=== PATIENT | male | born 1965 | race Caucasian/White ===

== ENCOUNTER → 2016-07-22 | Outpatient (CLI) | payer BC ==
--- NOTE | 2016-07-22 18:52 | MR ---
MRI of the brain with and without contrast HISTORY: Dizziness. TECHNIQUE: T1-weighted sagittal, T2, FLAIR, and diffusion axial, postcontrast T1 axial and coronal vi ews of the brain are submitted. CONTRAST: 15 mL of MultiHance FINDINGS: There is no evidence of acute ischemia. The ventricles, basal cisterns, and sulci overlying the co nvexities are consistent with the patient's age. There is no mass effect or enhancing mass. Craniocervical junction maintained. Sella turcica has a normal appearance. No evidence of cerebellopo ntine angle mass. WHITE MATTER: Single 3 mm focal area of abnormal signal within the right frontal white matter of doub tful significance. There is normal enhancement of the visualized vasculature including the dural venous sinuses. IMPRESSION: 1. No acute intracranial process single tiny foci of abnormal signal in the right frontal white matte r nonspecific and of doubtful
== END | disposition home or self-care (01) ==
LOC: RADMRIMAIN 17:30
PROVIDERS: ATTEND Otolaryngology
DX: R42 Dizziness and giddiness (principal)
CPT/HCPCS: 70553; A9577

== ENCOUNTER → 2016-08-16 | Outpatient (CLI) | payer BC ==
--- NOTE | 2016-08-17 08:52 | MR ---
EXAMINATION TYPE: MR angio head wo con DATE OF EXAM: 08/16/2016 6:36 PM COMPARISON: NONE HISTORY: Dizziness, loss of balance Three-dimensional uson-cy-bottyd intracranial MRA was performed with multiple intensity projection im ages submitted and source data reviewed at the workstation. The vertebrobasilar system as well as intracranial portions of the internal carotid arteries and thei r major tributaries are patent. I do not see evidence for sizable aneurysm or vascular malformation. IMPRESSION: Normal study.
== END | disposition home or self-care (01) ==
LOC: RADMRIMAIN 17:48
PROVIDERS: ATTEND Psychiatry & Neurology Neurology
DX: G45.0 Vertebro-basilar artery syndrome (principal)
CPT/HCPCS: 70544

== ENCOUNTER 2017-08-13 13:36 | Observation (INO) | payer BC, OTHER ==
--- NOTE | 2017-08-13 14:26 | ED ---
General Adult HPI - General Chief complaint: Shortness of Breath Stated complaint: Abnormal EKG-sent by [email or web address] Time Seen by Provider: 08/13/17 14:10 Source: patient, family, RN notes reviewed, old records reviewed Mode of arrival: wheelchair Limitations: no limitations - History of Present Illness Initial comments: 51-year-old male presenting for one week of dyspnea. Patient has no significant medical history. He is a current smoker. He states that on several occasions over the past one week he has been extremely short of breath. He had 2 episodes that woke him from sleep. He had one moment of sharp anterior chest pain which he attributes to muscle spasm. No central radiating chest pain. Denies nausea vomiting or diarrhea. Denies fever or chills. Denies cough. Patient was seen at urgent care and sent over for EKG changes. Patient has no chest pain at the time my evaluation. - Related Data Home Medications Medication Instructions Recorded Confirmed Aspirin 243 mg PO ONCE 08/13/17 08/13/17 Cholecalciferol [Vitamin D3] 1,000 unit PO DAILY 08/13/17 08/13/17 Gabapentin [Neurontin] 300 mg PO TID 08/13/17 08/13/17 Naproxen 500 mg PO DAILY 08/13/17 08/13/17 Rosuvastatin Calcium [Crestor] 10 mg PO DAILY 08/13/17 08/13/17 Allergies Allergy/AdvReac Type Severity Reaction Status Date / Time atorvastatin [From Lipitor] AdvReac Hallucinati Verified 08/13/17 14:07 ons Review of Systems ROS Statement: Those systems with pertinent positive or pertinent negative responses have been documented in the HPI. ROS Other: All systems not noted in ROS Statement are negative. Past Medical History Past Medical History: Hyperlipidemia Additional Past Medical History / Comment(s): DDD History of Any Multi-Drug Resistant Organisms: None Reported Past Surgical History: No Surgical Hx Reported Past Psychological History: Anxiety Smoking Status: Current every day smoker Past Alcohol Use History: Rare Past Drug Use History: None Reported General Exam Limitations: no limitations General appearance: alert, in no apparent distress Head exam: Present: atraumatic, normocephalic Eye exam: Present: normal appearance, PERRL ENT exam: Present: normal exam Neck exam: Present: normal inspection. Absent: tenderness, meningismus Respiratory exam: Present: normal lung sounds bilaterally. Absent: respiratory distress, wheezes, rales Cardiovascular Exam: Present: regular rate, normal rhythm GI/Abdominal exam: Present: soft. Absent: distended, tenderness, guarding Extremities exam: Present: normal inspection, normal capillary refill. Absent: pedal edema, calf tenderness Back exam: Present: normal inspection Neurological exam: Present: alert, oriented X3, CN II-XII intact. Absent: motor sensory deficit Psychiatric exam: Present: normal affect, normal mood Skin exam: Present: warm, dry, intact. Absent: cyanosis, diaphoretic Course Vital Signs 08/13/17 08/13/17 08/13/17 13:39 14:00 15:00 Temperature 99.4 F Pulse Rate 97 71 88 Respiratory 18 18 20 Rate Blood Pressure 122/86 108/63 113/76 O2 Sat by Pulse 98 99 99 Oximetry 08/13/17 16:00 Temperature Pulse Rate 80 Respiratory 18 Rate Blood Pressure 118/80 O2 Sat by Pulse 98 Oximetry EKG Findings - EKG Comments: EKG Findings:: EKG shows normal sinus rhythm, ventricular rate of 93, VT interval 146, QRS duration 84, QTC [address] segment elevation, there is T-wave inversion in lead 3 and aVF Medical Decision Making - Medical Decision Making 51-year-old male presenting for evaluation of dyspnea and some anterior chest pain. Pain is atypical. Dyspnea has been episodic over the past several days although patient has had several episodes while sleeping. On exam lungs are clear, heart is regular, there is no lower extremity pain or swelling. EKG from medics breast is reviewed, there is nonspecific changes, repeat EKG in the emergency department does show T-wave inversion in leads 3 and aVF. Workup reveals white blood cell count 13.7 no obvious source of infection. Hemoglobin 16.8 d-dimer is negative, troponin negative, BNP is normal at 28. Chest x-ray negative for pulmonary edema or focal pneumonia. Patient admits that he has been feeling anxious lately, symptoms may be related to anxiety however he is concerned about his heart. He will be For serial cardiac enzymes and echo. - Lab Data Result diagrams: 08/13/17 14:15 08/13/17 14:15 Lab Results 08/13/17 08/13/17 08/13/17 Range/Units 14:15 14:15 14:15 WBC 13.7 H (3.8-10.6) k/uL RBC 5.77 (4.30-5.90) m/uL Hgb 16.8 (13.0-17.5) gm/dL Hct 48.8 (39.0-53.0) % MCV 84.6 (80.0-100.0) fL MCH 29.2 (25.0-35.0) pg MCHC 34.5 (31.0-37.0) g/dL RDW 13.0 (11.5-15.5) % Plt Count 257 (150-450) k/uL Neutrophils % 69 % Lymphocytes % 22 % Monocytes % 6 % Eosinophils % 1 % Basophils % 0 % Neutrophils # 9.5 H (1.3-7.7) k/uL Lymphocytes # 3.0 (1.0-4.8) k/uL Monocytes # 0.8 (0-1.0) k/uL Eosinophils # 0.2 (0-0.7) k/uL Basophils # 0.1 (0-0.2) k/uL PT (9.0-12.0) sec INR (<1.2) APTT (22.0-30.0) sec D-Dimer (<0.60) mg/L FEU Sodium 142 (137-145) mmol/L Potassium 4.0 (3.5-5.1) mmol/L Chloride 106 (98-107) mmol/L Carbon Dioxide 20 L (22-30) mmol/L Anion Gap 16 mmol/L BUN 17 (9-20) mg/dL Creatinine 0.80 (0.66-1.25) mg/dL Est GFR (CKD-EPI)AfAm >90 (>60 ml/min/1.73 sqM) Est GFR (CKD-EPI)NonAf >90 (>60 ml/min/1.73 sqM) Glucose 68 L (74-99) mg/dL Calcium 10.0 (8.4-10.2) mg/dL Magnesium 2.0 (1.6-2.3) mg/dL Total Bilirubin 0.6 (0.2-1.3) mg/dL AST 21 (17-59) U/L ALT 39 (21-72) U/L Alkaline Phosphatase 90 (38-126) U/L Total Creatine Kinase 157 (55-170) U/L CK-MB (CK-2) 0.5 (0.0-2.4) ng/mL CK-MB (CK-2) Rel Index 0.3 Troponin I <0.012 (0.000-0.034) ng/mL NT-Pro-B Natriuret Pep pg/mL Total Protein 7.3 (6.3-8.2) g/dL Albumin 4.9 (3.5-5.0) g/dL 08/13/17 08/13/17 Range/Units 14:15 14:15 WBC (3.8-10.6) k/uL RBC (4.30-5.90) m/uL Hgb (13.0-17.5) gm/dL Hct (39.0-53.0) % MCV (80.0-100.0) fL MCH (25.0-35.0) pg MCHC (31.0-37.0) g/dL RDW (11.5-15.5) % Plt Count (150-450) k/uL Neutrophils % % Lymphocytes % % Monocytes % % Eosinophils % % Basophils % % Neutrophils # (1.3-7.7) k/uL Lymphocytes # (1.0-4.8) k/uL Monocytes # (0-1.0) k/uL Eosinophils # (0-0.7) k/uL Basophils # (0-0.2) k/uL PT 9.9 (9.0-12.0) sec INR 1.0 (<1.2) APTT 23.8 (22.0-30.0) sec D-Dimer 0.28 (<0.60) mg/L FEU Sodium (137-145) mmol/L Potassium (3.5-5.1) mmol/L Chloride (98-107) mmol/L Carbon Dioxide (22-30) mmol/L Anion Gap mmol/L BUN (9-20) mg/dL Creatinine (0.66-1.25) mg/dL Est GFR (CKD-EPI)AfAm (>60 ml/min/1.73 sqM) Est GFR (CKD-EPI)NonAf (>60 ml/min/1.73 sqM) Glucose (74-99) mg/dL Calcium (8.4-10.2) mg/dL Magnesium (1.6-2.3) mg/dL Total Bilirubin (0.2-1.3) mg/dL AST (17-59) U/L ALT (21-72) U/L Alkaline Phosphatase (38-126) U/L Total Creatine Kinase (55-170) U/L CK-MB (CK-2) (0.0-2.4) ng/mL CK-MB (CK-2) Rel Index Troponin I (0.000-0.034) ng/mL NT-Pro-B Natriuret Pep 28 pg/mL Total Protein (6.3-8.2) g/dL Albumin (3.5-5.0) g/dL Disposition Clinical Impression: Chest pain Disposition: ADMITTED IP TO THIS HOSP Condition: Stable Is patient prescribed a controlled substance at d/c from ED?: No Referrals: Mendez Parra III, MD [Primary Care Provider] - 1-2 days Decision to Admit Reason: Admit from EC Decision Date: 08/13/17 Decision Time: 16:46
[2017-08-13 14:39] LABS: ALT 39 U/L (21-72); AST 21 U/L (17-59); Albumin 4.9 g/dL (3.5-5.0); Alkaline Phosphatase 90 U/L (38-126); Anion Gap 16 mmol/L; Blood Urea Nitrogen 17 mg/dL (9-20); Carbon Dioxide 20 mmol/L (22-30); Chloride 106 mmol/L (98-107); Glucose 68 mg/dL (74-99); Sodium 142 mmol/L (137-145); Total Bilirubin 0.6 mg/dL (0.2-1.3); Total Protein 7.3 g/dL (6.3-8.2)
[2017-08-13 14:40] LABS: Basophils # (A) 0.1 k/uL (0-0.2); Basophils % (A) 0 %; Eosinophils # (A) 0.2 k/uL (0-0.7); Eosinophils % (A) 1 %; HCT 48.8 % (39.0-53.0); HGB 16.8 gm/dL (13.0-17.5); Lymphocytes % (A) 22 %; MCH 29.2 pg (25.0-35.0); MCHC 34.5 g/dL (31.0-37.0); MCV 84.6 fL (80.0-100.0); Mean Platelet Volume 7.7; Monocytes # (A) 0.8 k/uL (0-1.0); Monocytes % (A) 6 %; Neutrophils # (A) 9.5 k/uL (1.3-7.7); Neutrophils % (A) 69 %; Platelet Count 257 k/uL (150-450); RBC 5.77 m/uL (4.30-5.90); WBC 13.7 k/uL (3.8-10.6)
--- NOTE | 2017-08-13 14:40 | XR ---
EXAMINATION TYPE: XR chest 2V DATE OF EXAM: 08/13/2017 COMPARISON: NONE INDICATION: Difficulty breathing abnormal EKG TECHNIQUE: Frontal and lateral views of the chest are obtained. FINDINGS: The heart size is normal. The pulmonary vasculature is normal. The lungs are clear. IMPRESSION: 1. No acute pulmonary process.
[2017-08-13 14:50] LABS: Creatine Kinase 157 U/L (55-170); D-Dimer 0.28 mg/L FEU (<0.60); Partial Thromboplastin Time 23.8 sec (22.0-30.0); Prothrombin Time 9.9 sec (9.0-12.0)
[2017-08-13 15:02] LABS: Creatine Kinase MB 0.5 ng/mL (0.0-2.4); Troponin I <0.012 ng/mL (0.000-0.034)
[2017-08-13] MEDS ORDERED: NALOXONE 0.4 MG/ML 1 ML VIAL IV PRN (16:46)
[2017-08-13] MEDS ORDERED: ASPIRIN 325 MG TAB PO STA (16:46)
[2017-08-13 18:46] VITALS: BMI 27.9
[2017-08-13 19:04] LABS: Creatine Kinase 132 U/L (55-170)
[2017-08-13 19:15] LABS: Creatine Kinase MB 0.4 ng/mL (0.0-2.4); Troponin I <0.012 ng/mL (0.000-0.034)
[2017-08-13] MEDS: GABAPENTIN 300 MG CAP PO SCH (20:15)
[2017-08-14] MEDS ORDERED: GABAPENTIN 300 MG CAP ONE (02:45)
[2017-08-14 05:46] LABS: Creatine Kinase 109 U/L (55-170); Creatine Kinase MB 0.3 ng/mL (0.0-2.4); Troponin I <0.012 ng/mL (0.000-0.034)
--- NOTE | 2017-08-14 07:58 | CONS ---
CONSULTATION Mr. Balbuena is a 51-year-old male with no prior history of cardiac disease, who presented with an episode of dyspnea occurring for the last week. The dyspnea occurring at rest and at times waking him from sleep quite severe. He has no clear symptoms of chest discomfort. His activity is limited at times because of his back discomfort, but he has no prior cardiac history. He denies any dizziness or palpitation. No PND, orthopnea, or peripheral edema. He has no prior cardiac workup. He had no recent cough or fever. No wheezing. His coronary risk factors are remarkable for smoking about a half a pack a day and hyperlipidemia. He is nondiabetic and not hypertensive. MEDICATION: His medications at home include aspirin, vitamin D, Neurontin, Naprosyn, and Crestor 10 mg daily. REVIEW OF SYSTEMS: RESPIRATORY SYSTEM: He has dyspnea, but no recent wheezing or cough. No history of obstructive lung disease. GI SYSTEM: No recent GI bleed. No peptic ulcer disease. SYSTEM: No dysuria or hematuria. NERVOUS SYSTEM: No stroke or seizure. PHYSICAL EXAMINATION: A 51-year-old male, alert, oriented, in no apparent distress. Blood pressure 122/60 with the heart rate in the 80s. HEAD: Normocephalic. EYES: Sclerae nonicteric. NECK: Good carotid upstroke. No bruit. No jugular venous distention. LUNGS: Clear to auscultation. HEART: Regular rate and rhythm/ S1, S2. No S3, no S4. No murmur or rub. ABDOMEN: Soft, nontender. Positive bowel sounds. No organomegaly. EXTREMITIES: No edema. Intact distal pulses. LAB DATA: Lab data revealed troponin less than 0.012 for 3 samples. BUN and creatinine 17 and 0.8. Potassium 4.0. Hemoglobin of 16.8, white blood cells 13.7. EKG revealed a sinus mechanism, normal axis and intervals. No acute changes. Chest x-ray shows no acute infiltrate. IMPRESSION: 1. Episode of dyspnea of unclear etiology. No clear evidence to suggest fluid overload on examination and no evidence to suggest acute ischemic event. 2. History of chronic tobacco use. 3. History of hyperlipidemia. 4. Chronic back pain. RECOMMENDATION: I will obtain a stress echocardiogram and a transthoracic echo and depending on those findings, further recommendation will be made. Thank you for this consult. We will follow with you. MMODL / IJN: [id number] /
[2017-08-14 08:22] VITALS: RESP 18; TEMP 97.7
--- NOTE | 2017-08-14 08:34 | ECHOF ---
Referral Reason:dyspnea MEASUREMENTS -------- HEIGHT: 167.6 cm WEIGHT: 78.5 kg BP: 122/60 RVIDd: 2.6 cm (< 3.3) IVSd: 0.9 cm (0.6 - 1.1) LVIDd: 3.8 cm (3.9 - 5.3) LVPWd: 0.9 cm (0.6 - 1.1) IVSs: 1.1 cm LVIDs: 2.8 cm LVPWs: 1.2 cm LAESV Index (A-L): 19.71 ml/m Ao Diam: 3.8 cm (2.0 - 3.7) AV Cusp: 1.8 cm (1.5 - 2.6) LA Diam: 2.9 cm (2.7 - 3.8) EPSS: 1.5 cm MV E Jamin: 0.55 m/s MV DecT: 427 ms MV A Jamin: 0.60 m/s MV E/A Ratio: 0.92 RAP: 5.00 mmHg RVSP: 22.43 mmHg MV EF SLOPE: 84.33 mm/s (70 - 150) MV EXCURSION: 1.97 cm (> 18.000) FINDINGS -------- Sinus rhythm. This was a technically adequate study. The left ventricular size is normal. Left ventricular wall thickness is normal. Overall left vent ricular systolic function is normal with, an EF between 55 - 60 %. The right ventricle is normal in size and function. Normal LA size by volume 22+/-6 ml/m2. The right atrium is normal in size. The aortic valve is trileaflet, and appears structurally normal. No aortic stenosis or regurgitation. The mitral valve is normal. There is trace to mild mitral regurgitation. Trace tricuspid regurgitation present. Right ventricular systolic pressure is normal at < 35 mmHg. There is no evidence of pulmonary hypertension. There is no pulmonic regurgitation present. The aortic root is borderline dilated up to 3.7 cm. Normal inferior vena cava with normal inspiratory collapse consistent with estimated right atrial pre ssure of 5 mmHg. There is no pericardial effusion. CONCLUSIONS -------- 1. Sinus rhythm. 2. This was a technically adequate study. 3. The left ventricular size is normal. 4. Left ventricular wall thickness is normal. 5. Overall left ventricular systolic function is normal with, an EF between 55 - 60 %. 6. Normal LA size by volume 22+/-6 ml/m2. 7. The aortic valve is trileaflet, and appears structurally normal. No aortic stenosis or regurgitati on. 8. There is trace to mild mitral regurgitation. 9. Trace tricuspid regurgitation present. 10. Right ventricular systolic pressure is normal at < 35 mmHg. 11. There is no pulmonic regurgitation present. 12. The aortic root is borderline dilated up to 3.7 cm. 13. There is no pericardial effusion. VENEER GRADER: Haim Keller RDCS
[2017-08-14] MEDS ORDERED: CRESTOR 10MG PO SCH (09:00)
[2017-08-14] MEDS: GABAPENTIN 300 MG CAP PO SCH (11:20)
[2017-08-14 11:36] VITALS: BP 127/77; PULSE 93
--- NOTE | 2017-08-14 13:11 | ECHOS ---
STRESS ECHOCARDIOGRAM DATE OF SERVICE: 08/14/2017 INDICATIONS: Chest pain. MEDICATIONS: BASELINE HEART RATE: 87 BASELINE BLOOD PRESSURE: 122/89 MAXIMUM HEART RATE: 156 MAXIMUM BLOOD PRESSURE: 154/77 85% MPHR: 145 100% MPHR: 171 METS: 10.5 MAXIMUM STAGE REACHED: III TOTAL EXERCISE TIME: 9:02 CLINICAL INFORMATION: Baseline rhythm is sinus mechanism, rate of 87, normal axis, intervals, normal electrocardiogram. Baseline blood pressure 122/89 mmHg. Patient exercised on Bigg protocol for 9 minutes and 2 seconds reaching peak rate of 156 beats per minute , which is equal to 91% maximum predicted heart rate. Peak blood pressure 154/77 mmHg. Test was terminated secondary to fatigue. There was no chest pain. Electrocardiographic monitoring revealed rare PVCs. There was no evidence of diagnostic ischemic ST deviation. Baseline echocardiogram revealed normal wall motion. At peak exercise, there was normal wall motion augmentation with no hypokinesis or dyskinesis. CONCLUSION: 1. Good exercise tolerance with normal electrocardiograph response to exercise with occasional PVCs. 2. Normal stress echocardiogram with no evidence of stress-induced ischemia. MMODL / IJN: [id number] / MTDD
--- NOTE | 2017-08-14 14:06 | P.HPIM ---
History of Present Illness 51-year-old gentleman came in with complaints of shortness of breath. Patient' s chest x-ray did not show significant amount of physical exam there is no wheezing patient is a smoker. Patient has episodic which lasted for few minutes of 3-4 days ago and yesterday it lasted whole day patient denied any cough doesn't have any pneumonia on chest x-ray. Patient is satting at 94% on room air not in respiratory distress. Patient was never diagnosed with asthma. Does smoke. Never diagnosed with COPD. Because of his unexplained shortness of breath patient had an echocardiogram and stress echo both of which did not show any significant abnormality troponins were negative EKG showed sinus rhythm. Unsure of the exact etiology of his shortness of breath although patient objectively is clinically doing well and saturations are reasonable at 94% as he is a smoker I do not expect his saturations to be 99-100%. Patient may have an undiagnosed early stages of COPD as of I do not believe he'll need systemic or inhaled steroids patient will be discharged on albuterol as needed. Patient appears to be an anxious person and the shortness of breath may be related to his anxiety as well. Although extensive nicotine cessation counseling was provided and patient will follow with PCP as an outpatient. Review of Systems REVIEW OF SYSTEMS: CONSTITUTIONAL: No fever, no malaise, no fatigue. HEENT: No recent visual problems or hearing problems. Denied any sore throat. CARDIOVASCULAR: No chest pain, orthopnea, PND, no palpitations, no syncope. PULMONARY: no cough, no hemoptysis. GASTROINTESTINAL: No diarrhea, no nausea, no vomiting, no abdominal pain. Normoactive bowel sounds. NEUROLOGICAL: No headaches, no weakness, no numbness. HEMATOLOGICAL: Denies any bleeding or petechiae. GENITOURINARY: Denies any burning micturition, frequency, or urgency. MUSCULOSKELETAL/RHEUMATOLOGICAL: Denies any joint pain, swelling, or any muscle pain. ENDOCRINE: Denies any polyuria or polydipsia. The rest of the 14-point review of systems is negative. Past Medical History Past Medical History: Hyperlipidemia Additional Past Medical History / Comment(s): DDD pt currently getting epidurals. History of Any Multi-Drug Resistant Organisms: None Reported Past Surgical History: Hernia Repair, Orthopedic Surgery Additional Past Surgical History / Comment(s): 2 left knee replacements Past Anesthesia/Blood Transfusion Reactions: No Reported Reaction Past Psychological History: Anxiety Smoking Status: Current every day smoker Past Alcohol Use History: Rare Additional Past Alcohol Use History / Comment(s): pt smokes 1/2 pack a day Past Drug Use History: None Reported Medications and Allergies Home Medications Medication Instructions Recorded Confirmed Type Aspirin 243 mg PO ONCE 08/13/17 08/13/17 History Cholecalciferol [Vitamin D3] 1,000 unit PO DAILY 08/13/17 08/13/17 History Gabapentin [Neurontin] 300 mg PO TID 08/13/17 08/13/17 History Naproxen 500 mg PO DAILY 08/13/17 08/13/17 History Rosuvastatin Calcium [Crestor] 10 mg PO DAILY 08/13/17 08/13/17 History Albuterol Inhaler [Ventolin Hfa 1 - 2 puff INHALATION Q6HR PRN #1 08/14/17 Rx Inhaler] inhaler Allergies Allergy/AdvReac Type Severity Reaction Status Date / Time atorvastatin [From Lipitor] AdvReac Hallucinati Verified 08/13/17 14:07 ons Physical Exam Vitals: Vital Signs Temp Pulse Pulse Resp BP BP Pulse Ox 08/14/17 11:35 97.7 F 93 18 127/77 94 L 08/14/17 07:20 97.7 F 72 18 113/66 94 L 08/14/17 00:00 79 15 08/13/17 23:31 98.5 F 84 15 122/60 94 L 08/13/17 20:48 97 08/13/17 20:00 80 16 08/13/17 18:53 98.1 F 84 14 120/76 93 L 08/13/17 18:00 97.9 F 80 18 122/71 98 08/13/17 17:00 98.5 F 88 20 118/85 99 08/13/17 16:00 80 18 118/80 98 08/13/17 15:00 88 20 113/76 99 Intake and Output 08/13/17 08/14/17 08/14/17 22:59 06:59 14:59 Intake Total 400 Balance 400 Intake: Oral 400 Other: Voiding Method Toilet Toilet Toilet # Voids 2 Weight 78.471 kg PHYSICAL EXAMINATION: GENERAL: The patient is alert and oriented x3, not in any acute distress. Well developed, well nourished. HEENT: Pupils are round and equally reacting to light. EOMI. No scleral icterus. No conjunctival pallor. Normocephalic, atraumatic. No pharyngeal erythema. No thyromegaly. CARDIOVASCULAR: S1 and S2 present. No murmurs, rubs, or gallops. PULMONARY: Chest is clear to auscultation, no wheezing or crackles. ABDOMEN: Soft, nontender, nondistended, normoactive bowel sounds. No palpable organomegaly. MUSCULOSKELETAL: No joint swelling or deformity. EXTREMITIES: No cyanosis, clubbing, or pedal edema. NEUROLOGICAL: Gross neurological examination did not reveal any focal deficits. SKIN: No rashes. Results CBC & Chem 7: 08/13/17 14:15 08/13/17 14:15 Labs: Abnormal Lab Results - Last 24 Hours (Table) 08/13/17 08/13/17 Range/Units 14:15 14:15 WBC 13.7 H (3.8-10.6) k/uL Neutrophils # 9.5 H (1.3-7.7) k/uL Carbon Dioxide 20 L (22-30) mmol/L Glucose 68 L (74-99) mg/dL Thrombosis Risk Factor Assmnt - Choose All That Apply Any of the Below Risk Factors Present?: Yes Each Factor Represents 1 point: Age 41-60 years, Obesity (BMI >25) Other congenital or acquired thrombophilia - If yes, enter type in comment: No Thrombosis Risk Factor Assessment Total Risk Factor Score: 2 Thrombosis Risk Factor Assessment Level: Low Risk Assessment and Plan Plan: -Shortness of breath: Etiology and workup as mentioned above patient will be discharged today. -Nicotine abuse: Counseling was provided -Hyperlipidemia. -Possible anxiety disorder.
--- NOTE | 2017-08-14 14:06 | P.DS ---
Providers Date of admission: 08/13/17 16:48 Attending physician: Dalila Cardenas Consults: 08/13/17 16:47 Consult Physician Routine Consulting Provider: Brendan Orellana Reason/Comments: CP Do you want consulting provider notified?: Yes Primary care physician: Mendez Parra [facility] Course: Please refer to my HPI Patient Condition at Discharge: Stable Plan - Discharge Summary Discharge Rx Participant: Yes New Discharge Prescriptions: New Albuterol Inhaler [Ventolin Hfa Inhaler] 1 - 2 puff INHALATION Q6HR PRN #1 inhaler PRN Reason: Shortness Of Breath Or Wheezing No Action Rosuvastatin Calcium [Crestor] 10 mg PO DAILY Naproxen 500 mg PO DAILY Cholecalciferol [Vitamin D3] 1,000 unit PO DAILY Gabapentin [Neurontin] 300 mg PO TID Aspirin 243 mg PO ONCE Discharge Medication List Aspirin 243 mg PO ONCE 08/13/17 [History] Cholecalciferol [Vitamin D3] 1,000 unit PO DAILY 08/13/17 [History] Gabapentin [Neurontin] 300 mg PO TID 08/13/17 [History] Naproxen 500 mg PO DAILY 08/13/17 [History] Rosuvastatin Calcium [Crestor] 10 mg PO DAILY 08/13/17 [History] Albuterol Inhaler [Ventolin Hfa Inhaler] 1 - 2 puff INHALATION Q6HR PRN #1 inhaler 08/14/17 [Rx] Follow up Appointment(s)/Referral(s): Tahira Nielsen MD [STAFF PHYSICIAN] - 2 Weeks Mendez Parra III, MD [Primary Care Provider] - 3 Days Discharge Disposition: HOME SELF-CARE
== END 2017-08-14 14:51 | disposition home or self-care (01) ==
LOC: EC 13:36 → 3OBS 16:48
PROVIDERS: ADMIT Internal Medicine; ATTEND Internal Medicine
DX: R07.89 Other chest pain (principal); R06.02 Shortness of breath; F17.210 Nicotine dependence, cigarettes, uncomplicated; E78.5 Hyperlipidemia, unspecified; G89.29 Other chronic pain; M54.9 Dorsalgia, unspecified; F41.9 Anxiety disorder, unspecified; E66.9 Obesity, unspecified; Z68.27 Body mass index [BMI] 27.0-27.9, adult; R94.31 Abnormal electrocardiogram [ECG] [EKG]; Z96.652 Presence of left artificial knee joint; Z79.82 Long term (current) use of aspirin; Z79.1 Long term (current) use of non-steroidal anti-inflammatories (NSAID); Z79.899 Other long term (current) drug therapy
CPT/HCPCS: 99285 ×2; 36415; 94760; 93005; 93306; 93351; 85379; 83880; 80053; 82550 ×2; 82553 ×2; 83735; 84484 ×2; 85025; 85610; 85730; 71046; G0378 ×2

== ENCOUNTER 2019-01-28 14:05 | Emergency (ER) | payer OTHER ==
[2019-01-28] MEDS ORDERED: diphenhydrAMINE 50 MG/ML 1 ML VIAL IVP STA (14:12)
--- NOTE | 2019-01-28 14:21 | ED ---
General Adult HPI - General Stated complaint: Allergic Reaction Time Seen by Provider: 01/28/19 14:05 Source: patient, RN notes reviewed Mode of arrival: ambulatory Limitations: no limitations - History of Present Illness Initial comments: This is a 53-year-old male who has chronic low back pain has a pain pump who states he started naltrexone this afternoon about 1245 and about 30 was later he started having muscle pain and spasms felt jittery felt restless some lightheadedness. He was brought in by EMS for evaluation he also started having some scattered thoughts he states. There is a problem with this before - Related Data Home Medications Medication Instructions Recorded Confirmed Gabapentin [Neurontin] 300 mg PO TID 08/13/17 01/28/19 Naproxen 500 mg PO TID 08/13/17 01/28/19 Rosuvastatin Calcium [Crestor] 10 mg PO DAILY 08/13/17 01/28/19 Cyclobenzaprine [Flexeril] 10 mg PO BID PRN 01/28/19 01/28/19 Tamsulosin HCl [Flomax] 0.4 mg PO DAILY 01/28/19 01/28/19 traMADol HCL [Ultram] 50 mg PO BID PRN 01/28/19 01/28/19 Allergies Allergy/AdvReac Type Severity Reaction Status Date / Time morphine Allergy Itching Verified 01/28/19 14:13 atorvastatin [From Lipitor] AdvReac Hallucinati Verified 08/13/17 14:07 ons Review of Systems ROS Statement: Those systems with pertinent positive or pertinent negative responses have been documented in the HPI. ROS Other: All systems not noted in ROS Statement are negative. Past Medical History Past Medical History: Hyperlipidemia Additional Past Medical History / Comment(s): DDD pt currently getting epidurals. History of Any Multi-Drug Resistant Organisms: None Reported Past Surgical History: Hernia Repair, Orthopedic Surgery Additional Past Surgical History / Comment(s): 2 left knee replacements Past Anesthesia/Blood Transfusion Reactions: No Reported Reaction Past Psychological History: Anxiety Smoking Status: Current every day smoker Past Alcohol Use History: Rare Past Drug Use History: None Reported General Exam - General Exam Comments Initial Comments: This is a well-developed well-nourished awake alert oriented 3 male Limitations: no limitations General appearance: alert, anxious Head exam: Present: atraumatic, normocephalic, normal inspection Eye exam: Present: normal appearance, PERRL, EOMI. Absent: scleral icterus, conjunctival injection, periorbital swelling ENT exam: Present: normal exam, mucous membranes moist Neck exam: Present: normal inspection. Absent: tenderness, meningismus, lymphadenopathy Respiratory exam: Present: normal lung sounds bilaterally. Absent: respiratory distress, wheezes, rales, rhonchi, stridor Cardiovascular Exam: Present: normal rhythm, tachycardia, normal heart sounds. Absent: systolic murmur, diastolic murmur, rubs, gallop, clicks GI/Abdominal exam: Present: soft, normal bowel sounds. Absent: distended, tenderness, guarding, rebound, rigid Extremities exam: Present: normal inspection, full ROM, normal capillary refill. Absent: tenderness, pedal edema, joint swelling, calf tenderness Back exam: Present: normal inspection Neurological exam: Present: alert, oriented X3, CN II-XII intact Psychiatric exam: Present: normal affect, anxious Skin exam: Present: warm, dry, intact, normal color. Absent: rash Course Vital Signs 01/28/19 01/28/19 01/28/19 14:07 14:10 14:20 Pulse Rate 110 H Respiratory 20 Rate Blood Pressure 138/95 138/95 O2 Sat by Pulse 98 99 Oximetry 01/28/19 01/28/19 01/28/19 14:30 14:40 15:00 Pulse Rate 110 H 101 H 115 H Respiratory 11 L 17 20 Rate Blood Pressure 125/94 123/96 123/96 O2 Sat by Pulse 100 97 Oximetry 01/28/19 15:20 Pulse Rate 111 H Respiratory 15 Rate Blood Pressure 150/89 O2 Sat by Pulse Oximetry EKG Findings - EKG Results: EKG: interpreted by ERMD (Sinus tachycardia of 102. We'll 140 QRS duration 74 QT/QTC 334/[address]-T wave changes) Medical Decision Making - Medical Decision Making I did reevaluate the patient on multiple occasions he is feeling much improved this time we did discuss options for observation versus going home he would like to go home the half-life of the medication he is on his 4-5 hours did discuss the resolution of the symptoms he is showing 75% better he states at this time. The presentation is consistent with a extrapyramidal reaction to the medication - Lab Data Result diagrams: 01/28/19 14:30 11/14/19 15:16 Lab Results 01/28/19 01/28/19 Range/Units 14:30 15:16 WBC 12.8 H (3.8-10.6) k/uL RBC 5.12 (4.30-5.90) m/uL Hgb 15.1 (13.0-17.5) gm/dL Hct 44.6 (39.0-53.0) % MCV 87.2 (80.0-100.0) fL MCH 29.5 (25.0-35.0) pg MCHC 33.8 (31.0-37.0) g/dL RDW 12.9 (11.5-15.5) % Plt Count 268 (150-450) k/uL Neutrophils % 81 % Lymphocytes % 11 % Monocytes % 5 % Eosinophils % 2 % Basophils % 1 % Neutrophils # 10.4 H (1.3-7.7) k/uL Lymphocytes # 1.4 (1.0-4.8) k/uL Monocytes # 0.6 (0-1.0) k/uL Eosinophils # 0.3 (0-0.7) k/uL Basophils # 0.1 (0-0.2) k/uL Sodium 147 H (137-145) mmol/L Potassium 4.3 (3.5-5.1) mmol/L Chloride 115 H (98-107) mmol/L Carbon Dioxide 20 L (22-30) mmol/L Anion Gap 12 mmol/L BUN 8 L (9-20) mg/dL Creatinine 0.92 (0.66-1.25) mg/dL Est GFR (CKD-EPI)AfAm >90 (>60 ml/min/1.73 sqM) Est GFR (CKD-EPI)NonAf >90 (>60 ml/min/1.73 sqM) Glucose 98 (74-99) mg/dL Calcium 10.3 H (8.4-10.2) mg/dL Magnesium 2.0 (1.6-2.3) mg/dL Total Bilirubin 0.9 (0.2-1.3) mg/dL AST 23 (17-59) U/L ALT 19 L (21-72) U/L Alkaline Phosphatase 97 (38-126) U/L Creatine Kinase 194 H (55-170) U/L Total Protein 7.6 (6.3-8.2) g/dL Albumin 4.7 (3.5-5.0) g/dL Disposition Clinical Impression: Adverse drug reaction Disposition: HOME SELF-CARE Condition: Good Instructions (If sedation given, give patient instructions): General Allergic Reaction (ED) Is patient prescribed a controlled substance at d/c from ED?: No Referrals: Mendez Parra III, MD [Primary Care Provider] - 1-2 days
[2019-01-28 14:39] LABS: Basophils # (A) 0.1 k/uL (0-0.2); Basophils % (A) 1 %; Eosinophils # (A) 0.3 k/uL (0-0.7); Eosinophils % (A) 2 %; HCT 44.6 % (39.0-53.0); HGB 15.1 gm/dL (13.0-17.5); Lymphocytes # (A) 1.4 k/uL (1.0-4.8); Lymphocytes % (A) 11 %; MCH 29.5 pg (25.0-35.0); MCHC 33.8 g/dL (31.0-37.0); MCV 87.2 fL (80.0-100.0); Mean Platelet Volume 7.6; Monocytes # (A) 0.6 k/uL (0-1.0); Monocytes % (A) 5 %; Neutrophils # (A) 10.4 k/uL (1.3-7.7); Neutrophils % (A) 81 %; Platelet Count 268 k/uL (150-450); RBC 5.12 m/uL (4.30-5.90); RDW 12.9 % (11.5-15.5); WBC 12.8 k/uL (3.8-10.6)
[2019-01-28 15:33] LABS: ALT 19 U/L (21-72); AST 23 U/L (17-59); African American GFR (CKD) >90 (>60 ml/min/1.73 sqM); Albumin 4.7 g/dL (3.5-5.0); Alkaline Phosphatase 97 U/L (38-126); Anion Gap 12 mmol/L; Blood Urea Nitrogen 8 mg/dL (9-20); Calcium 10.3 mg/dL (8.4-10.2); Carbon Dioxide 20 mmol/L (22-30); Chloride 115 mmol/L (98-107); Creatine Kinase 194 U/L (55-170); Glucose 98 mg/dL (74-99); Sodium 147 mmol/L (137-145); Total Bilirubin 0.9 mg/dL (0.2-1.3); Total Protein 7.6 g/dL (6.3-8.2)
[2019-01-28 15:53] LABS: Potassium 4.3 mmol/L (3.5-5.1)
[2019-01-28 17:42] VITALS: BP 154/78; PULSE 20; RESP 100; TEMP 98
== END 2019-01-28 17:40 | disposition home or self-care (01) ==
LOC: EC 14:05
DX: R42 Dizziness and giddiness (principal); M79.10 Myalgia, unspecified site; T44.3X5A Adverse effect of other parasympatholytics [anticholinergics and antimuscarinics] and spasmolytics, initial encounter; G89.29 Other chronic pain; M54.5 Low back pain; E78.5 Hyperlipidemia, unspecified; F41.9 Anxiety disorder, unspecified; F17.200 Nicotine dependence, unspecified, uncomplicated; Z79.1 Long term (current) use of non-steroidal anti-inflammatories (NSAID); Z79.899 Other long term (current) drug therapy; Z88.5 Allergy status to narcotic agent; Z88.8 Allergy status to other drugs, medicaments and biological substances; Z87.39 Personal history of other diseases of the musculoskeletal system and connective tissue; Z97.8 Presence of other specified devices
CPT/HCPCS: 36415; 93005; 80053; 82550; 83735; 85025; 96374; 99284; J1200

== ENCOUNTER → 2019-10-21 | Outpatient (CLI) | payer OTHER ==
[2019-10-21 17:22] LABS: Basophils # (A) 0.1 k/uL (0-0.2); Basophils % (A) 0 %; Eosinophils # (A) 0.1 k/uL (0-0.7); Eosinophils % (A) 0 %; HCT 45.6 % (39.0-53.0); HGB 14.6 gm/dL (13.0-17.5); Lymphocytes # (A) 1.6 k/uL (1.0-4.8); Lymphocytes % (A) 8 %; MCH 28.6 pg (25.0-35.0); MCHC 32.1 g/dL (31.0-37.0); Mean Platelet Volume 7.9; Monocytes # (A) 0.9 k/uL (0-1.0); Monocytes % (A) 5 %; Neutrophils # (A) 16.2 k/uL (1.3-7.7); Neutrophils % (A) 85 %; Platelet Count 242 k/uL (150-450); RBC 5.12 m/uL (4.30-5.90); RDW 12.8 % (11.5-15.5)
[2019-10-21 17:34] LABS: Albumin 4.7 g/dL (3.5-5.0); Calcium 9.9 mg/dL (8.4-10.2); Phosphorus 3.5 mg/dL (2.5-4.5); Potassium 4.4 mmol/L (3.5-5.1)
--- NOTE | 2019-10-22 07:26 | CT ---
EXAMINATION TYPE: CT abdomen pelvis wo con DATE OF EXAM: 10/21/2019 COMPARISON: None INDICATION: Hematuria, hx of kidney stones DLP: 301.9 mGycm, Automated exposure control for dose reduction was used. CONTRAST: 0 mL of Isovue 300. Study performed without Oral Contrast TECHNIQUE: Axial images were obtained from above the diaphragm to the pubic rami in the axial plane a t 5 mm thick sections. Reconstructed images are reviewed on the computer in the coronal plane. FINDINGS: Limited CT sections are obtained the lung bases. The lung bases are clear. CT ABDOMEN: There is an implantable device along the anterior left subcutaneous area creating beam bangura rdening artifact. Liver: Normal Spleen: Normal Pancreas: Normal Adrenal glands: The adrenal glands are normal. Gallbladder: Normal Kidneys: No masses are evident. There is a moderate right hydronephrosis and mild right hydroureter h ydroureter extends to the right ureterovesical junction with a 0.4 cm calcification. There are multip le additional nonobstructing renal stones present bilaterally. The largest on the left in the mid lef t kidney measures 0.4 cm. There is an inferior pole right renal stone measuring 0.6 cm. A posterior m id right kidney stone measures 0.4 cm. There are additional punctate calcifications on the right. No cysts are present. Aorta: Vascular calcification is within the aorta. Inferior vena cava: Normal. CT PELVIS: Loops of bowel within the abdomen and pelvis are normal. The study is without oral contrast limit ing bowel evaluation. Scattered diverticuli without acute diverticulitis is present within the sigmoi d colon. No adjacent inflammatory changes are evident. Appendix: Normal as visualized. There are some right paracolic gutter stranding changes. Urinary bladder: Normal. Genitourinary structures: Prostate is prominent. Osseous structures: No suspicious lytic or sclerotic lesions. IMPRESSIONS: 1. 0.4 cm obstructing right ureterovesical junction stone. 2. Moderate right hydronephrosis and mild right hydroureter. 3. Additional bilateral nonobstructing renal stones. 4. Diverticulosis without acute diverticulitis. 3. Nonspecific stranding within the proximal ascending colon region. The appendix appears normal with out adjacent inflammatory change.
== END | disposition home or self-care (01) ==
LOC: RADCTMAIN 16:48
PROVIDERS: ATTEND Physician Assistant Medical
DX: N13.2 Hydronephrosis with renal and ureteral calculous obstruction (principal); R31.9 Hematuria, unspecified; R11.10 Vomiting, unspecified; D72.829 Elevated white blood cell count, unspecified; R11.0 Nausea; R68.83 Chills (without fever)
CPT/HCPCS: 36415; 74176; 80069; 85025

== ENCOUNTER → 2019-11-09 | Outpatient (CLI) | payer OTHER ==
--- NOTE | 2019-11-09 14:08 | US ---
EXAMINATION TYPE: US kidneys/renal and bladder DATE OF EXAM: 11/09/2019 COMPARISON: ct 10/21/2019 CLINICAL HISTORY: N20.0 CALCULUS OF KIDNEY. EXAM MEASUREMENTS: Right Kidney: 11.3 x 4.2 x 5.3 cm Left Kidney: 10.7 x 4.6 x 4.2 cm Right Kidney: No hydronephrosis or masses seen. Non-obstructing echogenic foci visualized measuring 0 .4 cm Left Kidney: No hydronephrosis or masses seen Bladder: wnl Bilateral Jets seen: Yes There is no evidence for hydronephrosis at this point in time. No masses are identified. The urin rand bladder is anechoic. Bilateral ureteral jets are seen. IMPRESSION: Nonobstructing nephrolithiasis.
--- NOTE | 2019-11-09 14:27 | XR ---
EXAMINATION TYPE: XR KUB DATE OF EXAM: 11/09/2019 HISTORY: Pain Comparison: None.Single KUB is submitted for interpretation. Findings: Right renal calculi: Approximately 2 or 3 sub-3 mm calculi are noted overlying the right kidney. Right ureteral calculi: None Visualized. Left renal calculi: None Visualized. Left ureteral calculi: None Visualized. Pelvic calcifications: Pelvic phlebolith is noted. Bowel gas pattern is unremarkable. No free air. No mass effects. IMPRESSION: 1. Approximately 2 or 3 sub-3 mm calculi are noted overlying the right kidney.
== END | disposition home or self-care (01) ==
LOC: RADUSWWP 13:21
PROVIDERS: ATTEND Urology
DX: N20.0 Calculus of kidney (principal)
CPT/HCPCS: 74018; 76770

== ENCOUNTER → 2020-10-05 | Outpatient (CLI) | payer MEDICARE, OTHER ==
[~2020-10-05] MED LIST: REGADENOSON 0.4 MG/5 ML SYRINGE IV PRN
--- NOTE | 2020-10-05 11:09 | ECHOS ---
STRESS ECHOCARDIOGRAM INDICATION: Dizziness. CLINICAL INFORMATION: Baseline EKG shows sinus rhythm, normal axis, normal intervals. Patient was given intravenous Lexiscan as per protocol. Did not have chest pain or diagnostic ST-segment depression. CONCLUSIONS: 1. Negative stress test by EKG criteria. 2. Cardiolite portion of the stress test will be reported separately. MMODL / IJN: [id number] /
--- NOTE | 2020-10-05 12:51 | NM ---
EXAMINATION TYPE: NM stress lexiscan cardiolite DATE OF EXAM: 10/05/2020 COMPARISON: None HISTORY: R00.2 palpations, R42 dizziness TECHNIQUE: After the intravenous administration of 9.4 mCi Tc 99m Sestamibi - Cardiolite resting SPE CT images acquired 45 minutes post injection. The patient received 0.4mg Lexiscan, 24.1 mCi Tc 99m Sestamibi - Stress images obtained [address] injection FINDINGS: Review of stress and rest SPECT images demonstrates no distinct perfusion abnormality. Gated analysi s shows normal wall motion with an estimated left ventricular ejection fraction of 57 %. IMPRESSION: No scintigraphic evidence for reversible ischemia.
== END | disposition home or self-care (01) ==
LOC: RADNMMAIN 07:55
PROVIDERS: ATTEND Family Medicine
DX: R42 Dizziness and giddiness (principal)
CPT/HCPCS: 93017; 78452; A9500; J2785

== ENCOUNTER → 2022-05-10 | Outpatient (CLI) | payer MEDICARE, OTHER ==
--- NOTE | 2022-06-12 10:12 | P.CEMON ---
30 Day Event monitor note: Patient wore an event monitor for 30 days from 05/10/2022 through 06/08/2022. Findings: Patient's baseline heart rate was normal sinus rhythm. There were no signficant atrial fibrillation, atrial flutter, or ventricular tachycardia episodes. There were no significant pauses greater than 2 seconds. There were a total of 60 patient activated events which responded with sinus rhythm There were 3 brief runs of atrial tachycardia 6-10 beats which were asymptomatic There was one episode of regular SVT at 150 bpm which lasted approximately 40 seconds which was asymptomatic Conclusions: 30 day event monitor showing normal sinus rhythm with rare atrial tachycardia and one episode of SVT which were both asymptomatic. Patient activated events corresponded with sinus rhythm.
== END | disposition home or self-care (01) ==
LOC: RADECHMAIN 07:44
PROVIDERS: ATTEND Family Medicine
DX: I47.1 Supraventricular tachycardia (principal); R06.02 Shortness of breath
CPT/HCPCS: 93270

== ENCOUNTER → 2022-10-01 | Outpatient (CLI) | payer MEDICARE, OTHER ==
--- NOTE | 2022-10-01 23:24 | CTL ---
EXAMINATION TYPE: CT Low Dose Lung DATE OF EXAM ORDERED: 10/01/2022 HISTORY: 21 year smoking history. Lung cancer screening CT DLP: 107.[address] CTDI: 2.8 mGy Automated exposure control for dose reduction was used. SCREENING VISIT: Initial COMPARISON: None TECHNIQUE: Low dose computed tomography scan was performed through the chest at 1 mm thick sections a nd reconstructed images in the coronal plane at [address] DIAGNOSTIC QUALITY: Satisfactory FINDINGS: LUNG NODULES: None. LUNGS: COPD: Severity: None Fibrosis: Severity: None Lymph nodes: None Other findings: None RIGHT PLEURAL SPACE: Effusion: None Calcification: None Thickening: None Pneumothorax: None LEFT PLEURAL SPACE: Effusion: None Calcification: None Thickening: None Pneumothorax: None HEART: Heart Size: Normal Coronary calcification: None Pericardial effusion: None OTHER FINDINGS: Upper abdomen: There is a nonobstructing punctate left upper pole renal stone Bony thorax: Normal Supraclavicular region: Normal Other: Ascending thoracic aorta at the level the main pulmonary artery measures 3.9 cm. The main pul monary artery at the bifurcation measures 2.6 cm. CHEST WALL: There is irregular density measuring 3.8 x 3.5 cm in the posterior lateral left chest wal l. This has some impression on the airspace between ribs and extends towards the superficial soft tis sues. Example image series 5 image 33. Metastatic disease should be considered. IMPRESSION: 1. Soft tissue lobular mass within the left posterior lateral mid chest wall. Additional workup is re commended. FOLLOW UP CT CHEST RECOMMENDATION: Additional workup for neoplasm within the left chest wall soft tis guerrero. CT LUNG RAD: Lung-Rad 4A Suspicious
== END | disposition home or self-care (01) ==
LOC: RADCTMAIN 13:36
PROVIDERS: ATTEND Family Medicine
DX: Z12.2 Encounter for screening for malignant neoplasm of respiratory organs (principal); M79.89 Other specified soft tissue disorders; Z87.891 Personal history of nicotine dependence
CPT/HCPCS: 71271

== ENCOUNTER 2022-10-08 22:49 | Emergency (ER) | payer MEDICARE, OTHER ==
[2022-10-08 23:03] VITALS: BP 134/88; PULSE 115; RESP 18; TEMP 98
[2022-10-08] MEDS ORDERED: TOPICAL SKIN ADHESIVE 1 EACH AMP TOPICAL ONE (23:11)
--- NOTE | 2022-10-08 23:18 | ED ---
Head Injury HPI - General Chief complaint: Head Injury Stated complaint: Fall, laceration on forehead Time Seen by Provider: 10/08/22 23:06 Source: patient, family, RN notes reviewed, old records reviewed Mode of arrival: ambulatory Limitations: no limitations - History of Present Illness Initial comments: Intoxicated however well-appearing and pleasant 57-year-old male presents to the emergency room with family after he tripped and fell sustaining a laceration to his forehead. Did not lose consciousness. Does not take blood thinners Patient states he is celebrating his 57th birthday and has been drinking beer tonight with friends and family. He denies any other injuries. States his tetanus shot is up-to-date. MD Complaint: head injury, fall -: hour(s) (1) Mechanism of Injury: other (trip and fall ) Location: frontal (forehead) Loss of Consciousness: no Place: outdoors Severity scale (1-10): 0 Other Injuries: none Associated Symptoms: denies other symptoms - Related Data Home Medications Medication Instructions Recorded Confirmed Gabapentin [Neurontin] 300 mg PO TID 08/13/17 01/28/19 Naproxen 500 mg PO TID 08/13/17 01/28/19 Rosuvastatin Calcium [Crestor] 10 mg PO DAILY 08/13/17 01/28/19 Cyclobenzaprine [Flexeril] 10 mg PO BID PRN 01/28/19 01/28/19 Tamsulosin HCl [Flomax] 0.4 mg PO DAILY 01/28/19 01/28/19 traMADol HCL [Ultram] 50 mg PO BID PRN 01/28/19 01/28/19 Allergies/Adverse reactions: Allergies Allergy/AdvReac Type Severity Reaction Status Date / Time morphine Allergy Itching Verified 10/08/22 23:04 atorvastatin [From Lipitor] AdvReac Hallucinati Verified 10/08/22 23:04 ons Review of Systems ROS Statement: Those systems with pertinent positive or pertinent negative responses have been documented in the HPI. ROS Other: All systems not noted in ROS Statement are negative. Past Medical History Past Medical History: Hyperlipidemia Additional Past Medical History / Comment(s): DDD pt currently getting epidurals. History of Any Multi-Drug Resistant Organisms: None Reported Past Surgical History: Hernia Repair, Orthopedic Surgery Additional Past Surgical History / Comment(s): 2 left knee replacements Past Anesthesia/Blood Transfusion Reactions: No Reported Reaction Past Psychological History: Anxiety Smoking Status: Never smoker Past Alcohol Use History: Rare Past Drug Use History: None Reported General Exam Limitations: no limitations General appearance: alert, in no apparent distress Head exam: Present: other (abrasion and superficial laceration forehead approx 3cm) Eye exam: Present: normal appearance. Absent: scleral icterus, conjunctival injection, periorbital swelling ENT exam: Present: normal oropharynx, mucous membranes moist Neck exam: Present: full ROM. Absent: tenderness, meningismus Respiratory exam: Present: normal lung sounds bilaterally. Absent: respiratory distress, accessory muscle use Cardiovascular Exam: Present: tachycardia Extremities exam: Present: full ROM Neurological exam: Present: alert, oriented X3 Psychiatric exam: Present: normal affect, normal mood Skin exam: Present: warm, dry, normal color. Absent: cyanosis, diaphoretic, petechiae, pallor Course Vital Signs 10/08/22 23:02 Temperature 98 F Pulse Rate 115 H Respiratory 18 Rate Blood Pressure 134/88 O2 Sat by Pulse 96 Oximetry Medical Decision Making - Medical Decision Making Was pt. sent in by a medical professional or institution (, PA, DIRECTOR SPECIALTY, urgent care, hospital, or fpc...) When possible be specific @ -No Did you speak to anyone other than the patient for history (EMS, parent, family, police, friend...)? What history was obtained from this source @ -Patient's at bedside and witnessed fall states no loss of consciousness, other than intoxicated is acting his normal self. Did you review nursing and triage notes (agree or disagree)? Why? @ -I reviewed and agree with nursing and triage notes Were old charts reviewed (outside hosp., previous admission, EMS record, old EKG, old radiological studies, urgent care reports/EKG's, fpc records)? Report findings @ -No old charts were reviewed Differential Diagnosis (chest pain, altered mental status, abdominal pain women, abdominal pain men, vaginal bleeding, weakness, fever, dyspnea, syncope, headache, dizziness, GI bleed, back pain, seizure, CVA, palpatations, mental health, musculoskeletal)? @ -Laceration, abrasion, skull fracture, intracranial bleed, this is not a inclusive list EKG interpreted by me (3pts min.). @ -n/a X-rays interpreted by me (1pt min.). @ -None done CT interpreted by me (1pt min.). @ -None done U/S interpreted by me (1pt. min.). @ -None done What testing was considered but not performed or refused? (CT, X-rays, U/S, labs)? Why? @ -CT was considered however patient denies any headache. No cranial deformity. No blood thinners. What meds were considered but not given or refused? Why? @ -Tetanus was considered however up-to-date. Offered pain medication and denied. Did you discuss the management of the patient with other professionals (professionals i.e. , PA, DIRECTOR SPECIALTY, lab, RT, psych nurse, socially responsible investment adviser, reception clerk, teacher, chief media officer, business case analyst)? Give summary @ -No Was smoking cessation discussed for >3mins.? @ -No Was critical care preformed (if so, how long)? @ -No Were there social determinants of health that impacted care today? How? (Homelessness, low income, unemployed, alcoholism, drug addiction, transportation, low edu. Level, literacy, decrease access to med. care, [facility] [facility], rehab)? @ -No Was there de-escalation of care discussed even if they declined (Discuss DNR or withdrawal of care, Hospice)? DNR status @ -No What co-morbidities impacted this encounter? (DM, HTN, Smoking, COPD, CAD, Cancer, CVA, ARF, Chemo, Hep., AIDS, mental health diagnosis, sleep apnea, morbid obesity)? @ -History of hyperlipidemia, degenerative disc disease with a pain pump, anxiety Was patient admitted / discharged? Hospital course, mention meds given and route, prescriptions, significant lab abnormalities, going to OR and other pertinent info. @ -Discharged Intoxicated however well-appearing and pleasant 57-year-old male presents to the emergency room with family after he tripped and fell sustaining a laceration to his forehead. Did not lose consciousness. Does not take blood thinners Patient states he is celebrating his 57th birthday and has been drinking beer tonight with friends and family. He denies any other injuries. States his tetanus shot is up-to-date. Wound was cleansed copiously with saline and debrided. Closed with exofin dermal glue. Denies headache. Patient states that he only drinks once a year on his birthday. He is alert and oriented 4, no blood thinners. Ambulatory with a steady gait. Discharged home to directed to follow up with primary care doctor next week. Return to the emergency room with pain or concerning symptoms. Patient and agreeable to this plan of care. Case discussed with Dr. Fontana Undiagnosed new problem with uncertain prognosis? @ -No Drug Therapy requiring intensive monitoring for toxicity (Heparin, Nitro, Insulin, Cardizem)? @ -No Were any procedures done? @ -Laceration repair with dermal glue Diagnosis/symptom? @ -Facial laceration, fall, minor head trauma Acute, or Chronic, or Acute on Chronic? @ -Acute Uncomplicated (without systemic symptoms) or Complicated (systemic symptoms)? @ -Uncomplicated Side effects of treatment? @ -No Exacerbation, Progression, or Severe Exacerbation? @ -No Poses a threat to life or bodily function? How? (Chest pain, [place], CA, pneumonia, PE, COPD, DKA, ARF, appy, cholecystitis, CVA, Diverticulitis, Homicidal, Suicidal, threat to staff... and all critical care pts) @ -No Disposition Clinical Impression: Facial laceration, Fall, Intoxication, Mild closed head injury Disposition: HOME SELF-CARE Condition: Good Instructions (If sedation given, give patient instructions): Head Injury (ED), Fall Prevention (ED), Facial Laceration (ED) Additional Instructions: Keep wound clean and dry. Do not put any ointments or lotions on the wound. Return to the emergency room with a concerning symptoms or signs of infection. Is patient prescribed a controlled substance at d/c from ED?: No Referrals: Shannon Werner MD [Primary Care Provider] - 1-2 days Time of Disposition: 23:33
== END 2022-10-08 23:44 | disposition home or self-care (01) ==
LOC: EC 22:49
DX: S01.81XA Laceration without foreign body of other part of head, initial encounter (principal); F10.129 Alcohol abuse with intoxication, unspecified; E78.5 Hyperlipidemia, unspecified; Z86.59 Personal history of other mental and behavioral disorders; Z79.899 Other long term (current) drug therapy; W01.0XXA Fall on same level from slipping, tripping and stumbling without subsequent striking against object, initial encounter; Y92.828 Other wilderness area as the place of occurrence of the external cause
CPT/HCPCS: 12013; 99283